=== PATIENT | male | born 1955 | race African-American/Black ===

== ENCOUNTER 2019-06-29 04:59 | Day surgery (SDC) | payer OTHER ==
[2019-06-12 11:34] VITALS: BMI 22.0
[2019-06-29] MEDS ORDERED: PROPOFOL 20 ML ONE (07:18)
[2019-06-29] MEDS ORDERED: LIDOCAINE HCL/PF 2% SDV 5ML VIAL ONE (07:18)
[2019-06-29] MEDS ORDERED: MIDAZOLAM HCL 2 MG/2 ML SINGLE DOSE VIAL ONE (07:18)
[2019-06-29] MEDS ORDERED: SUCCINYLCHOLINE CHLORIDE 200 MG/10 ML SYRINGE ONE (07:20)
--- NOTE | 2019-06-29 07:52 | OP ---
Operative Note - Note: Operative Date: 06/29/19 Pre-Operative Diagnosis: prostate cancer Operation: prostate cryoablation and cystoscopy Post-Operative Diagnosis: Same as Pre-op Surgeon: Tyshawn Yost Anesthesiologist/PROCESS EXCELLENCE MANAGER: Kymberly Flowers Anesthesia: General Estimated Blood Loss (mls): 0 Drains & Tubes with Location: 18 fr reed Operative Report Dictated: Yes
[2019-06-29] MEDS ORDERED: ceFAZolin 2 GRAM PREMIX BAG IVPB ONE (08:05)
[2019-06-29] MEDS ORDERED: DEXAMETHASONE SOD PHOSPHATE 4 MG/1 ML VIAL ONE (08:15)
[2019-06-29] MEDS ORDERED: KETOROLAC TROMETHAMINE 30 MG/1 ML VIAL ONE (08:16)
[2019-06-29] MEDS ORDERED: ceFAZolin SODIUM 1 GM VIAL ONE (08:33)
[2019-06-29] MEDS ORDERED: ONDANSETRON 4 MG/2 ML VIAL IVPUSH PRN (08:59)
[2019-06-29] MEDS ORDERED: LACTATED RINGERS SOLUTION 1,000 ML IV SCH (09:00)
--- NOTE | 2019-06-29 09:47 | OP ---
DATE OF OPERATION: 06/29/2019 PREOPERATIVE DIAGNOSIS: Prostate cancer. POSTOPERATIVE DIAGNOSIS: Prostate cancer PROCEDURE: Prostate cryoablation and cystoscopy. SURGEON: Tyshawn Redd MD ATMOSPHERIC CHEMIST: None. ANESTHESIA: General via laryngeal mask. ANESTHESIOLOGIST: Kymberly Flowers MD SPECIMENS: None. CULTURES: None. DRAINS: London catheter 18-Danish. ESTIMATED BLOOD LOSS: Negligible. COMPLICATIONS: None. DESCRIPTION OF PROCEDURE: Patient was brought into the operating room, placed on the operating table in supine position. After administration of general anesthesia via laryngeal mask, intravenous antibiotics were administered. Sequential compression devices were placed. Patient was placed in the dorsal lithotomy position. The perineum was shaved first, then the perineum and genitals were prepped and draped in the usual sterile manner. An 18-Danish London catheter was placed per urethra, 10 mL was placed in the balloon, the urine was evacuated. Now the bladder was filled with 400 mL of sterile normal saline and London catheter was clamped. Now the scrotum was elevated and an [place] drape was placed. The transrectal ultrasound probe was inserted into the rectum. Transrectal ultrasound of the prostate was done, and a plan was created for prostate whole-gland cryoablation using 6 probes. Once the plan was devised, the 6 cryoablation probes were placed in the appropriate location under ultrasound guidance. Two temperature sensors were placed, one in [place]villiers fascia and one in the external sphincter. Now London catheter was removed and flexible cystoscopy was performed. This demonstrated a normal anterior urethra. The prostatic urethra measured approximately 5 cm in length and demonstrated severe bilobar occlusion. The bladder was entered and thoroughly inspected. There were no foreign bodies, tumors, stones, inflammation. Both ureteral orifices were in their usual location with clear efflux bilaterally. No probes had penetrated the prostatic urethra or the bladder. Now Super Stiff guidewire was passed through the cystoscope into the bladder, and the cystoscope was removed. Urethra warmer was passed over the Super Stiff guidewire into the bladder, and the Super Stiff guidewire was removed. Urethral warming was started. Probe position was reconfirmed under sagittal view under ultrasound guidance. All probes were in proper position. Now the cryoablation was started using 2 freeze-thaw cycles. Excellent ablation of the entire gland was achieved. At the end of the procedure, the urethral warmer was left in place additional 5 minutes. The temperature sensors and the ablation probes were removed. Digital manual pressure on the perineum achieved hemostasis. The wound was sterilely dressed with Bacitracin, 4 x 4's, Tegaderm. An 18-Danish London catheter was replaced, placed on gravity drainage, returned minimally blood tinged. He tolerated the procedure well, transferred to recovery in stable condition. TYSHAWN REDD M.D. [id number]
[2019-06-29 11:52] VITALS: TEMP 97.4
--- NOTE | 2019-06-29 12:25 | EKG ---
Test Reason : Blood Pressure : / mmHG Vent. Rate : 079 BPM Atrial Rate : 079 BPM P-R Int : 190 ms QRS Dur : 084 ms QT Int : 400 ms P-R-T Axes : 067 057 035 degrees QTc Int : 458 ms NORMAL SINUS RHYTHM BIATRIAL ENLARGEMENT INCOMPLETE RBBB NONSPECIFIC T WAVE ABNORMALITY ABNORMAL ECG Confirmed by ZACH WHEATLEY MD ([id number]) on 06/29/2019 12:25:38 PM Referred By: Confirmed By:ZACH WHEATLEY MD
[2019-06-29 13:13] VITALS: BP 136/77; PULSE 80
== END 2019-06-29 13:14 | disposition home or self-care (01) ==
LOC: JASU-SURG 04:59
PROVIDERS: ATTEND Urology
PROC: 0V503ZZ Destruction of Prostate, Percutaneous Approach (ICD-10-PCS; principal; 2019-06-29 08:00)
DX: C61 Malignant neoplasm of prostate (principal)
CPT/HCPCS: 55873; C2618; 93005; 93010; 94760